=== PATIENT | female | born 1960 | race Caucasian/White ===

== ENCOUNTER 2017-07-24 14:11 | Emergency (ER) | payer OTHER ==
[~2017-07-24] VITALS: Ht 165.1 cm; Wt 70.3 kg
[2017-07-24] MEDS ORDERED: NORFLEX100MG PO (17:11)
[2017-07-24] MEDS ORDERED: MEDROLPACK PO (17:11)
[2017-07-24] MEDS ORDERED: KETO10TA2 PO (17:11)
== END 2017-07-24 17:33 | disposition home or self-care (01) ==
LOC: ER 14:11
DX: M46.1 Sacroiliitis, not elsewhere classified (principal); M54.16 Radiculopathy, lumbar region